=== PATIENT | male | born 1965 | race Caucasian/White ===

== ENCOUNTER 2019-07-04 14:27 | Emergency (ER) | payer MEDICAID ==
[~2019-07-04] VITALS: Ht 172.7 cm; Wt 74.8 kg
[2019-07-04 14:54] VITALS: BP 126/89
== END 2019-07-04 16:54 | disposition home or self-care (01) ==
LOC: ER 14:27
DX: S80.862A Insect bite (nonvenomous), left lower leg, initial encounter (principal); S80.861A Insect bite (nonvenomous), right lower leg, initial encounter; S40.862A Insect bite (nonvenomous) of left upper arm, initial encounter; S40.861A Insect bite (nonvenomous) of right upper arm, initial encounter; E78.00 Pure hypercholesterolemia, unspecified; W57.XXXA Bitten or stung by nonvenomous insect and other nonvenomous arthropods, initial encounter; Y93.89 Activity, other specified; Y92.89 Other specified places as the place of occurrence of the external cause; Y99.8 Other external cause status

== ENCOUNTER 2021-06-22 18:56 | Emergency (ER) | payer MEDICAID ==
[~2021-06-22] VITALS: Ht 172.7 cm; Wt 74.8 kg
[~2021-06-22 18:56] MED LIST: ASPI1TAB20 PO; ATOR20TA50 PO; FOLI1TAB6 PO; GAB100C PO; LEVO500T31 PO; THIA100T10 PO
[2021-06-22 23:24] VITALS: BP 142/100
== END 2021-06-22 23:27 | disposition home or self-care (01) ==
LOC: ER 18:56
DX: M79.605 Pain in left leg (principal); E78.5 Hyperlipidemia, unspecified; Z79.82 Long term (current) use of aspirin; Z79.899 Other long term (current) drug therapy
CPT/HCPCS: 73590; 93970

== ENCOUNTER 2022-07-21 14:48 | Inpatient (IN) | payer MEDICAID ==
[~2022-07-21] VITALS: Ht 172.7 cm; Wt 73.0 kg
[2022-07-21 16:20] LABS: Basophils # (auto) 0.2 10 ^3/uL (0-0.2); Basophils % (auto) 1.1 % (0.0-2.0); Eosinophils # (auto) 0 10 ^3/uL (0-0.8); Lymphocytes # (auto) 0.7 10 ^3/uL (0.4-5.4); Lymphocytes % (auto) 4.2 % (10.0-50.0); Mean Corpuscular Hgb Conc. 34.2 g/dL (32.0-36.0); Nucleated Red Blood Cells % 0.1 %
[2022-07-21 16:22] LABS: Hematocrit 50.5 % (41.0-53.0); Hemoglobin 17.2 g/dL (13.5-17.5); Mean Corpuscular Hemoglobin 34.5 pg (28.0-32.0); Monocytes # (auto) 1.3 10 ^3/uL (0-1.3); Monocytes % (auto) 7.6 % (0.0-12.0); Neutrophils # (auto) 14.5 10 ^3/uL (1.6-8.6); Neutrophils % (auto) 87.1 % (37.0-80.0); Red Cell Distribution Width 13.2 % (11.8-14.3); White Blood Cell 16.6 10^3/uL (4.4-10.8)
[2022-07-21 16:42] LABS: Albumin 3.7 g/dL (3.4-5.0)
[2022-07-21 16:48] LABS: BUN/Creatinine Ratio 12.9; Bilirubin, Total 2.4 mg/dL (0.2-1.0); Total Protein 7.6 g/dL (6.4-8.2)
[2022-07-21] MEDS ORDERED: ONDANSETRON ODT 4 MG TAB PO ONE (17:00)
[2022-07-21 17:08] LABS: Potassium 7.7 mmol/L (3.5-5.1)
[2022-07-21 17:10] LABS: Urine Bacteria NONE SEEN /hpf (None Seen); Urine Blood 2+ /uL (Negative); Urine Hyaline Cast MOD /lpf (0 - 2); Urine Mucus FEW (None Seen); Urine Specific Gravity 1.032 (1.001-1.035); Urine WBC 3 /hpf (0 - 3)
[2022-07-21] MEDS ORDERED: LORazepam 2MG/ML-1ML VIAL ONE (17:20)
[2022-07-21] MEDS ORDERED: LORazepam 2MG/ML-1ML VIAL IV ONE (17:30)
[2022-07-21] MEDS ORDERED: SODIUM CHLORIDE 0.9% 1,000 ML IV ONE ×2 (18:00→18:30)
[2022-07-21] MEDS ORDERED: LORazepam 2MG/ML-1ML VIAL IV SCH (18:15)
[2022-07-21] MEDS ORDERED: PANTOPRAZOLE 40 MG/10 ML VIAL INJ IV ONE (18:15)
[2022-07-21] MEDS ORDERED: InsuLIN REG 1unit/0.01ml Soln (100units/ml) IV ONE ×2 (18:15→22:00)
[2022-07-21] MEDS ORDERED: DEXTROSE (50%) 50ML SYRG IV ONE ×2 (18:15→22:00)
[2022-07-21] MEDS ORDERED: CALCIUM GLUC 1,000mg/50ml-NS 50 ML IV ONE (18:15)
[2022-07-21] MEDS ORDERED: SODIUM BICARBONATE 8.4% INJ 50ML SYRINGE IV ONE (18:15)
[2022-07-21] MEDS ORDERED: chlordiazePOXIDE HCL 25 MG CAP PO ONE (18:15)
[2022-07-21] MEDS ORDERED: FOLIC ACID 1 MG in D5W 5% 50 ML INJ SCH (18:15)
[2022-07-21] MEDS ORDERED: FUROSEMIDE 20 MG/2 ML VIAL IV ONE (18:15)
[2022-07-21] MEDS ORDERED: THIAMINE 100mg/ml INJ (200mg/2ml VIAL) IV ONE (18:15)
[2022-07-21] MEDS ORDERED: LACTATED RINGER'S 2,000 ML IV ONE (18:15)
[2022-07-21] MEDS ORDERED: MORPHINE SULFATE INJ 2 MG/ml SYRG IV PRN (18:30)
[2022-07-21] MEDS ORDERED: NITROGLYCERIN 0.4 MG SL TAB SL PRN (18:30)
[2022-07-21 18:47] LABS: Blood Alcohol < 3.0 mg/dL (0-5); Magnesium 1.6 mg/dL (1.6-2.6)
[2022-07-21 18:55] LABS: INR 1.31 (0.9-1.15)
[2022-07-21 18:55] LABS: Cholesterol 82 mg/dL (< 200); HDL Cholesterol 14 mg/dL (40-59); LDL Cholesterol 48 mg/dL (< 100); Triglycerides 220 mg/dL (< 150)
[2022-07-21] MEDS ORDERED: PIPERACILLIN-TAZOB 2.25GM 50 ML IV ONE (20:00)
[2022-07-21 20:33] LABS: Amphetamine Screen, Urine NEGATIVE (NEGATIVE); Barbiturate Scree,Urine NEGATIVE (NEGATIVE); Benzodiazephine Screen, Urine NEGATIVE (NEGATIVE); Cannabinoid Screen, Urine NEGATIVE (NEGATIVE); Cocaine Screen, Urine NEGATIVE (NEGATIVE); Opiate Scree,Urine NEGATIVE (NEGATIVE); Phencyclidine Screen, Urine NEGATIVE (NEGATIVE)
[2022-07-21] MEDS ORDERED: FOLIC ACID 1 MG in D5W 5% 50 ML INJ ONE (21:00)
[2022-07-21] MEDS: LORazepam 2MG/ML-1ML VIAL IV PRN (21:25)
[2022-07-21 21:26] LABS: Lactic Acid w/Reflex 11.2 mmol/L (0.4-2.0)
[2022-07-21] MEDS: MAGNESIUM SULFATE 1GM/100ML 100 ML IV SCH ×2 (21:47→23:21)
[2022-07-21] MEDS ORDERED: SODIUM BICARBONATE 8.4 % INJ 50ML VIAL IV ONE (22:00)
[2022-07-21] MEDS: GABAPENTIN 100 MG CAP PO SCH (22:00)
[2022-07-21 22:39] LABS: Albumin 3.2 g/dL (3.4-5.0); Bilirubin, Direct 1.5 mg/dL (0-0.2)
[2022-07-21 22:42] LABS: Bilirubin, Total 2.9 mg/dL (0.2-1.0); Total Protein 6.7 g/dL (6.4-8.2)
[2022-07-21] MEDS: ONDANSETRON HCL 4 MG/2 ML VIAL IV PRN (23:26)
[2022-07-21] MEDS: MORPHINE SULFATE INJ 2 MG/ml SYRG IV PRN (23:27)
[2022-07-22] MEDS: PIPERACILLIN-TAZOB 2.25GM 50 ML IV SCH ×3 (03:34→15:49)
[2022-07-22] MEDS: ONDANSETRON HCL 4 MG/2 ML VIAL IV PRN (03:40)
[2022-07-22] MEDS: LORazepam 2MG/ML-1ML VIAL IV PRN ×2 (03:48→22:38)
[2022-07-22] MEDS: SODIUM BICARBONATE 50ML VIAL 150 ML in D5W 5% 1,000 ML IV SCH ×2 (05:50→09:30)
[2022-07-22 06:24] LABS: Basophils # (auto) 0 10 ^3/uL (0-0.2); Basophils % (auto) 0.5 % (0.0-2.0); Eosinophils # (auto) 0 10 ^3/uL (0-0.8); Mean Corpuscular Hemoglobin 35.2 pg (28.0-32.0); Neutrophils # (auto) 4.9 10 ^3/uL (1.6-8.6); Nucleated Red Blood Cells % 0.1 %; White Blood Cell 6.2 10^3/uL (4.4-10.8)
[2022-07-22 06:26] LABS: Hematocrit 38.7 % (41.0-53.0); Hemoglobin 13.9 g/dL (13.5-17.5); Lymphocytes # (auto) 0.6 10 ^3/uL (0.4-5.4); Lymphocytes % (auto) 9.1 % (10.0-50.0); Mean Corpuscular Volume 97.6 fL (80.0-100.0); Monocytes # (auto) 0.6 10 ^3/uL (0-1.3); Monocytes % (auto) 10.4 % (0.0-12.0); Red Blood Cells 3.96 10^6/uL (4.5-5.90); Red Cell Distribution Width 13.4 % (11.8-14.3)
[2022-07-22 06:48] LABS: Calcium 7.3 mg/dL (8.5-10.1); Potassium 4.2 mmol/L (3.5-5.1)
[2022-07-22] MEDS: THIAMINE 100mg/ml INJ (200mg/2ml VIAL) IV SCH (09:46)
[2022-07-22] MEDS: GABAPENTIN 100 MG CAP PO SCH (09:46)
[2022-07-22] MEDS: PANTOPRAZOLE 40 MG/10 ML VIAL INJ IV SCH (09:46)
[2022-07-22] MEDS: FOLIC ACID 1 MG in D5W 5% 50 ML INJ SCH (09:50)
[2022-07-22] MEDS ORDERED: ASPirin-EC 81 mg tab PO SCH (10:00)
[2022-07-22 18:04] LABS: BUN/Creatinine Ratio 17.7; Calcium 8.1 mg/dL (8.5-10.1); Magnesium 2.9 mg/dL (1.6-2.6); Phosphorus 1.4 mg/dL (2.5-4.90); Potassium 4.4 mmol/L (3.5-5.1)
[2022-07-22] MEDS: LACTATED RINGER'S 1,000 ML IV SCH (18:09)
[2022-07-22 21:00] LABS: Folate (Folic Acid) 18.77 ng/mL (5.38-24)
[2022-07-22 21:45] VITALS: BP 114/81
[2022-07-22 21:55] VITALS: BP 117/85
[2022-07-22] MEDS: ATORVASTATIN 20 MG TAB PO SCH (22:06)
[2022-07-22] MEDS: MEROPENEM 1GM IVPB 100 ML IV SCH (22:06)
[2022-07-22] MEDS ORDERED: DIPH25CA66 PO (22:53)
[2022-07-23] MEDS: LACTATED RINGER'S 1,000 ML IV SCH ×4 (04:48→20:40)
[2022-07-23] MEDS: MEROPENEM 1GM IVPB 100 ML IV SCH ×3 (05:34→22:18)
[2022-07-23 05:45] VITALS: BP 138/87
[2022-07-23 06:13] LABS: Basophils # (auto) 0 10 ^3/uL (0-0.2); Basophils % (auto) 0.2 % (0.0-2.0); Eosinophils # (auto) 0 10 ^3/uL (0-0.8); Eosinophils % (auto) 0.3 % (0.0-7.0); Hematocrit 35.8 % (41.0-53.0); Hemoglobin 12.8 g/dL (13.5-17.5); Lymphocytes # (auto) 0.7 10 ^3/uL (0.4-5.4); Lymphocytes % (auto) 12.7 % (10.0-50.0); Mean Corpuscular Hemoglobin 35.5 pg (28.0-32.0); Mean Corpuscular Hgb Conc. 35.8 g/dL (32.0-36.0); Mean Corpuscular Volume 99.3 fL (80.0-100.0); Monocytes # (auto) 0.5 10 ^3/uL (0-1.3); Monocytes % (auto) 9.3 % (0.0-12.0); Neutrophils # (auto) 4.1 10 ^3/uL (1.6-8.6); Neutrophils % (auto) 77.5 % (37.0-80.0); Nucleated Red Blood Cells % 0.1 %; Red Cell Distribution Width 13.4 % (11.8-14.3); White Blood Cell 5.3 10^3/uL (4.4-10.8)
[2022-07-23 06:21] LABS: Potassium 4.5 mmol/L (3.5-5.1)
[2022-07-23 06:27] LABS: Albumin 2.4 g/dL (3.4-5.0); BUN/Creatinine Ratio 17.9; Bilirubin, Total 1.3 mg/dL (0.2-1.0); Calcium 8.1 mg/dL (8.5-10.1); Phosphorus 1.7 mg/dL (2.5-4.90); Total Protein 6.1 g/dL (6.4-8.2); Uric Acid 2.4 mg/dL (3.5-7.2)
[2022-07-23 06:47] LABS: Urine Bacteria FEW /hpf (None Seen); Urine Blood 3+ /uL (Negative); Urine Specific Gravity 1.022 (1.001-1.035); Urine WBC 2 /hpf (0 - 3)
[2022-07-23 07:06] LABS: Sodium Urine 112 mmol/L (40-220)
[2022-07-23 07:08] LABS: Creatinine, Urine 98 mg/dL (30.0-125.0)
[2022-07-23] MEDS ORDERED: SODIUM PHOSPHATES 24 MEQ in SODIUM CHL 0.9% 100 ML IV ONE (08:15)
[2022-07-23 09:00] VITALS: BP 128/76
[2022-07-23] MEDS: THIAMINE 100mg/ml INJ (200mg/2ml VIAL) IV SCH (09:52)
[2022-07-23] MEDS: PANTOPRAZOLE 40 MG/10 ML VIAL INJ IV SCH (09:52)
[2022-07-23] MEDS: MULTIPLE VITAMINS W/ MINERALS TAB PO SCH (09:53)
[2022-07-23] MEDS: FOLIC ACID 1 MG in D5W 5% 50 ML INJ SCH (10:03)
[2022-07-23 13:00] VITALS: BP 152/93
[2022-07-23] MEDS: MORPHINE SULFATE INJ 2 MG/ml SYRG IV PRN (16:53)
[2022-07-23] MEDS: ONDANSETRON HCL 4 MG/2 ML VIAL IV PRN (16:53)
[2022-07-23 17:00] VITALS: BP 128/79
[2022-07-23 22:00] VITALS: BP 143/89
[2022-07-23] MEDS: ATORVASTATIN 20 MG TAB PO SCH (22:18)
[2022-07-24] MEDS: LACTATED RINGER'S 1,000 ML IV SCH ×2 (04:00→08:46)
[2022-07-24] MEDS: LORazepam 2MG/ML-1ML VIAL IV PRN (04:36)
[2022-07-24 05:00] VITALS: BP_SYST 153; BP_SYST 164; BP_DIAS 101; BP_DIAS 99
[2022-07-24 05:11] LABS: Basophils # (auto) 0 10 ^3/uL (0-0.2); Eosinophils # (auto) 0 10 ^3/uL (0-0.8); Hemoglobin 12.7 g/dL (13.5-17.5); Monocytes # (auto) 0.8 10 ^3/uL (0-1.3); Nucleated Red Blood Cells % 0.1 %
[2022-07-24 05:14] LABS: Basophils % (auto) 0.2 % (0.0-2.0); Eosinophils % (auto) 0.5 % (0.0-7.0); Hematocrit 35.6 % (41.0-53.0); Lymphocytes # (auto) 0.6 10 ^3/uL (0.4-5.4); Lymphocytes % (auto) 11.3 % (10.0-50.0); Mean Corpuscular Hemoglobin 35.2 pg (28.0-32.0); Mean Corpuscular Hgb Conc. 35.6 g/dL (32.0-36.0); Mean Corpuscular Volume 98.8 fL (80.0-100.0); Monocytes % (auto) 16.5 % (0.0-12.0); Neutrophils # (auto) 3.5 10 ^3/uL (1.6-8.6); Neutrophils % (auto) 71.5 % (37.0-80.0); Red Cell Distribution Width 12.9 % (11.8-14.3); White Blood Cell 4.9 10^3/uL (4.4-10.8)
[2022-07-24 05:24] LABS: Albumin 2.4 g/dL (3.4-5.0); Magnesium 2.3 mg/dL (1.6-2.6); Potassium 3.7 mmol/L (3.5-5.1)
[2022-07-24 05:27] LABS: BUN/Creatinine Ratio 10.9; Bilirubin, Total 1.4 mg/dL (0.2-1.0); Phosphorus 2.3 mg/dL (2.5-4.90); Total Protein 5.4 g/dL (6.4-8.2)
[2022-07-24] MEDS: MEROPENEM 1GM IVPB 100 ML IV SCH (06:15)
[2022-07-24] MEDS: THIAMINE 100mg/ml INJ (200mg/2ml VIAL) IV SCH (08:45)
[2022-07-24] MEDS: MULTIPLE VITAMINS W/ MINERALS TAB PO SCH (08:45)
[2022-07-24] MEDS: PANTOPRAZOLE 40 MG/10 ML VIAL INJ IV SCH (08:45)
[2022-07-24 08:55] VITALS: BP 150/95
[2022-07-24] MEDS ORDERED: SODIUM PHOSPHATES 24 MEQ in SODIUM CHL 0.9% 100 ML IV ONE (09:00)
[2022-07-24] MEDS: FOLIC ACID 1 MG in D5W 5% 50 ML INJ SCH (10:00)
[2022-07-24] MEDS ORDERED: FOLI1TAB6 PO (11:09)
[2022-07-24] MEDS ORDERED: MULT-351 PO (11:09)
[2022-07-24] MEDS ORDERED: THIA100T10 PO (11:09)
[2022-07-24] MEDS ORDERED: LEVO500T31 PO (11:09)
[2022-07-24] MEDS ORDERED: METR500T PO (11:09)
[2022-07-24 11:14] VITALS: BP 150/95
[2022-07-24 13:10] VITALS: BP 155/98
== END 2022-07-24 14:35 | disposition home or self-care (01) | DRG 720 ==
LOC: ER 14:48 → TELE 18:16 → UNDOADMIN 18:16 → ICU WEST 07-22 04:05 → TELE 07-22 04:05 → TELE-CENTR 07-22 21:53
PROVIDERS: ADMIT Nurse Practitioner Family; ATTEND Internal Medicine
DX: A41.9 Sepsis, unspecified organism (principal); N17.0 Acute kidney failure with tubular necrosis; K85.90 Acute pancreatitis without necrosis or infection, unspecified; F10.131 Alcohol abuse with withdrawal delirium; R73.9 Hyperglycemia, unspecified; K76.0 Fatty (change of) liver, not elsewhere classified; E78.5 Hyperlipidemia, unspecified; E87.5 Hyperkalemia; K80.20 Calculus of gallbladder without cholecystitis without obstruction; N18.2 Chronic kidney disease, stage 2 (mild); Z20.822 Contact with and (suspected) exposure to COVID-19; Y90.8 Blood alcohol level of 240 mg/100 ml or more
CPT/HCPCS: 36415; 36600; 70450; 74176; 76705; 80048; 80053; 80061; 80076; 80307; 80320; 81001; 82140; 82270; 82570; 82607; 82746; 82805; 82962; 83036; 83605; 83690; 83735; 84100; 84132; 84300; 84443; 84550; 85025; 85610; 87040; 87426; 93005; 96361; 96374; C9113; G0378; J1815; J2185; J2405; J2543; J7060

== ENCOUNTER 2025-06-12 09:30 | Inpatient (IN) | payer MEDICAID ==
[~2025-06-12] VITALS: Ht 165.1 cm; Wt 86.0 kg
[~2025-06-12 09:30] MED LIST changes: +DIPH25CA66 PO; +FOLI-119 PO; -FOLI1TAB6 PO; -GAB100C PO; +METR500T PO; +MULT-351 PO
--- NOTE | 2025-06-12 09:51 | ED.PDOC ---
HPI (NEURO) HPI Comments This is a 59-year-old male with past medical history of CVA (2005) brought in by EMS from home due to recurrent fall. Per patient, he had a mechanical fall 7 days back, hit his head on the edge of a tab and subsequently developed headache. He denies loss of consciousness, nausea, vomiting, or any blurry vision. Since then, he has been recurrently falling and is unable to walk (get imbalance). Upon EMS arrival, he was vitally stable. Currently, he reports of occipital area numbness which radiated to the top of the head. He denies headache, blurry vision, nausea, vomiting, chest pain, shortness of breath, or any bladder/bowel habit changes. He has multiple bruises on the back of the c hest, anterior chest, and lower limbs due to fall. 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 Information Source: Patient Mode of Arrival: EMS Past Medical History PAST MEDICAL HISTORY: CVA, High Lipids Surgical History: Denies all surgeries Family History Family History: Reviewed,noncontributory to illness Social History Smoker: Non-Smoker Alcohol: Heavy Drugs: Denies Drug Use Lives In: Home Constitutional: denies: chills, diaphoresis, fatigue, fever, malaise, sweats, weakness, others EENTM: denies: blurred vision, double vision, ear bleeding, ear discharge, ear drainage, ear pain, ear ringing, eye pain, eye redness, hearing loss, mouth pain, mouth swelling, nasal discharge, nose bleeding, nose congestion, nose pain, photophobia, tearing, throat pain, throat swelling, voice changes, others Respiratory: denies: cough, hemoptysis, orthopnea, SOB at rest, shortness of breath, SOB with excertion, stridor, wheezing, others Cardiovascular: denies: chest pain, dizzy spells, diaphoresis, Dyspnea on exertion, edema, irregular heart beat, left arm pain, lightheadedness, palpitations, PND, syncope, others Gastrointestinal: denies: abdomen distended, abdominal pain, blood streaked bowels, constipated, diarrhea, dysphagia, difficulty swallowing, hematemesis, melena, nausea, poor appetite, poor fluid intake, rectal bleeding, rectal pain, vomiting, others Genitourinary: denies: burning, dysuria, flank pain, frequency, hematuria, incontinence, penile discharge, penile sore, pain, testicle pain, testicle swelling, urgency, others Neurological: denies: dizziness, fainting, headache, left sided numbness, left sided weakness, numbness, paresthesia, pre-existing deficit, right sided numbness, right sided weakness, seizure, speech problems, tingling, tremors, weakness, others Musculoskeletal: denies: back pain, gout, joint pain, joint swelling, muscle pain, muscle stiffness, neck pain, others Integumetry: denies: bruises, change in color, change in hair/nails, dryness, laceration, lesions, lumps, rash, wounds, others Allergic/Immunocompromised: denies: Difficulty Healing, Frequent Infections, Hives, Itching, others Hematologic/Lymphatic: denies: anemia, blood clots, easy bleeding, easy bruising, swollen glands, others Endocrine: denies: excessive hunger, excessive sweating, excessive thirst, excessive urination, flushing, intolerance to cold, intolerance to heat, unexplained weight gain, unexplained weight loss, others Psychiatric: denies: anxiety, bipolar disorder, depression, hopeless, panic disorder, schizophrenia, sleepless, suicidal, others Physical Exam General Appearance: No Apparent Distress, Normal HEENT: Normal ENT Inspection, Pharynx Normal, TMs Normal Neck: Full Range of Motion, Non-Tender, Normal, Normal Inspection Respiratory: Chest Non-Tender, Lungs Clear, No Accessory Muscle Use, No Respiratory Distress, Normal Breath Sounds Cardiovascular: No Edema, No JVD, No Murmur, No Gallop, Normal Peripheral Pulses, Regular Rate/Rhythm Breast Exam: Deferred Gastrointestinal: No Organomegaly, Non Tender, No Pulsatile Mass, Normal Bowel Sounds, Soft Genitalia: Deferred Pelvic: Deferred Rectal: Deferred Extremities: No calf tenderness, Normal capillary refill, Normal inspection, Normal range of motion, Non-tender, No pedal edema Musculoskeletal : Apperance: Normal Neurologic: Alert, patternmaker sample II-XII nml as Tested, No Motor Deficits, Normal Affect, Normal Mood, No Sensory Deficits Cerebellar Function: Normal Reflexes: Normal Skin: Dry, Normal Color, Warm Lymphatic: No Adenopathy Was a procedure done? Was a procedure done?: No Differential Diagnosis (SZ) Seizure: CVA/TIA Headache: Closed Head Injury, Post-Traumatic X-Ray, Labs, Meds, VS Vital Signs Date Time Temp Pulse Resp B/P (MAP) Pulse Ox O2 Delivery O2 Flow Rate FiO2 06/12/25 13:00 92 16 119/71 (87) 97 06/12/25 12:10 98.3 85 20 98/68 (78) 97 98.3 06/12/25 12:10 85 20 97 Room Air* 0 21 06/12/25 11:11 91 18 129/72 (91) 99 06/12/25 09:50 Room Air* 0 21 06/12/25 09:44 98.0 95 18 132/87 98 98.0 Lab Test 06/12/25 14:40 06/12/25 09:58 Range/Units Urine Color Yellow Yellow Urine Clarity Clear Clear Urine pH 6.5 5.0-9.0 Urine Specific [place] 1.014 1.001-1.035 Urine Protein Negative Negative Urine Ketones 1+ H Negative Urine Blood Negative Negative /uL Urine Nitrite Negative Negative Urine Bilirubin Negative Negative Urine Urobilinogen Normal Negative mg/dL Urine Leukocyte Esterase Negative Negative /uL Urine RBC <1 0 - 3 /hpf Urine Microscopic WBC < 1 0-3 /HPF Urine Squamous Epithelial Cells Few <5 /hpf Urine Bacteria None seen None Seen /hpf Urine Glucose Normal Normal mg/dL Urine Opiates Screen Neg NEGATIVE Urine Fentanyl Screen Neg NEGATIVE Urine Barbiturates Screen Neg NEGATIVE Urine Phencyclidine Screen Neg NEGATIVE Urine Amphetamines Screen Neg NEGATIVE Urine Benzodiazepines Screen Neg NEGATIVE Urine Cocaine Screen Neg NEGATIVE Urine Cannabinoids Screen Neg NEGATIVE White Blood Count 6.8 4.4-10.8 10^3/uL Red Blood Count 3.95 L 4.5-5.90 10^6/uL Hemoglobin 13.3 L 13.5-17.5 g/dL Hematocrit 37.3 L 41.0-53.0 % Mean Corpuscular Volume 94.4 80.0-100.0 fL Mean Corpuscular Hemoglobin 33.8 H 28.0-32.0 pg Mean Corpuscular Hemoglobin Concent 35.8 32.0-36.0 g/dL Red Cell Distribution Width 12.8 11.8-14.3 % Platelet Count 298 140-450 10^3/uL Mean Platelet Volume 6.8 L 6.9-10.8 fL Neutrophils (%) (Auto) 37.0-80.0 % Lymphocytes (%) (Auto) 10.0-50.0 % Monocytes (%) (Auto) 0.0-12.0 % Basophils (%) (Auto) 0.0-2.0 % Neutrophils # (Auto) 1.6-8.6 10 ^3/uL Lymphocytes # (Auto) 0.4-5.4 10 ^3/uL Monocytes # (Auto) 0-1.3 10 ^3/uL Differential Total Cells Counted 100.0 100 Neutrophils % (Manual) 40 37.0-80.0 Band Neutrophils % (Manual) 6 Lymphocytes % (Manual) 31 10.0-50.0 Monocytes % (Manual) 21 H 0-12 Eosinophils % (Manual) 0 0-7 Basophils % (Manual) 0 0.0-2.0 Metamyelocytes % (manual) 1 Myelocytes % (Manual) 1 Promyelocytes % (Manual) 0 Blast Cells % (Manual) 0 Reactive Lymphocytes 0 Platelet Estimate Adequate Red Blood Cell Morphology Normal Prothrombin Time 11.9 H 9.3-11.8 sec Prothrombin Time INR 1.14 0.9-1.15 Sodium Level 126 L 136-145 mmol/L Potassium Level 3.2 L 3.5-5.1 mmol/L Chloride Level 91 L 98-107 mmol/L Carbon Dioxide Level 21 20-31 mmol/L Anion Gap 14 5-15 Blood Urea Nitrogen 21 9-23 mg/dL Creatinine 0.80 0.700-1.30 mg/dL Glomerular Filtration Rate Calc 101 >90 mL/min BUN/Creatinine Ratio 26.3 H 10.0-20.0 Serum Glucose 129 H 74-106 mg/dL Calcium Level 10.3 8.7-10.4 mg/dL Magnesium Level 2.1 1.6-2.6 mg/dL Total Bilirubin 1.9 H 0.2-1.0 mg/dL Aspartate Amino Transferase (AST) 264 H 13-40 U/L Alanine Aminotransferase (ALT) 150 H 7-40 U/L Alkaline Phosphatase 96 46-116 U/L Troponin I High Sensitivity 20 </=54 ng/L Total Protein 7.5 5.7-8.2 g/dL Albumin 4.4 3.2-4.8 g/dL Plasma/Serum Blood Alcohol < 3.0 <10 mg/dL Current Medications Medications (Trade) Dose Ordered Sig/Emily Route Start Time Stop Time Status Last Admin Atorvastatin Calcium (Lipitor) 80 mg ONCE ONCE PO 06/12/25 10:00 06/12/25 10:01 DC 06/12/25 11:02 Sodium Chloride 1,000 ml @ 1,000 mls/hr Q1H ONCE IV 06/12/25 11:00 06/12/25 11:59 DC 06/12/25 10:58 Time of 1ST Reevaluation: 15:36 Reevaluation 1ST: Unchanged Patient Education/Counseling: Diagnosis, Treatment, Prognosis, Need For Follow Up Family Education/Counseling: No Family Present Comments Patient came to the hospital due to recurrent fall. Head CT scan performed, no significant intracranial abnormalities. On CMP there was hypokalemia. Patient was given atorvastatin, IV fluid, folic acid and thiamine. On subsequent check a patient's BP was still feeling the same. Patient will be admitted for inpatient care, further workup, possible brain MRI and expert opinion. Departure 1 Departure Time of Disposition: 15:36 Impression: Primary Impression: Posterior circulation stroke Additional Impression: Hepatitis Disposition: 09 ADMITTED INPATIENT Admit to: Tele Condition: Guarded Critical Care Note Critical Care Time?: Yes (45 min-critical care time only) Stability Stability form required: No Heart Score Heart Score: Heart Score Response (Comments) Value History N/A 0 EKG N/A 0 Age N/A 0 Risk Factors N/A 0 Troponin N/A 0 Total 0 SARAH CAVAZOS Jun 12, 2025 09:51
[2025-06-12 10:14] LABS: Hematocrit 37.3 % (41.0-53.0); Hemoglobin 13.3 g/dL (13.5-17.5); Mean Corpuscular Hemoglobin 33.8 pg (28.0-32.0); Mean Corpuscular Volume 94.4 fL (80.0-100.0)
[2025-06-12 10:25] LABS: INR 1.14 (0.9-1.15); Prothrombin Time 11.9 sec (9.3-11.8)
[2025-06-12 10:28] LABS: Albumin 4.4 g/dL (3.2-4.8); Alkaline Phosphatase 96 U/L (46-116); Anion Gap 14 (5-15); BUN/Creatinine Ratio 26.3 (10.0-20.0); Blood Urea Nitrogen 21 mg/dL (9-23); Calcium 10.3 mg/dL (8.7-10.4); Carbon Dioxide 21 mmol/L (20-31); Magnesium 2.1 mg/dL (1.6-2.6); Total Protein 7.5 g/dL (5.7-8.2)
[2025-06-12 10:29] LABS: Alanine Aminotransferase 150 U/L (7-40); Bilirubin, Total 1.9 mg/dL (0.2-1.0); Chloride 91 mmol/L (98-107); Glucose 129 mg/dL (74-106); Potassium 3.2 mmol/L (3.5-5.1); Sodium 126 mmol/L (136-145)
--- NOTE | 2025-06-12 10:29 | DVH ---
EXAM: CT HEAD WITHOUT CONTRAST INDICATION: fall TECHNIQUE: CT of the head without intravenous contrast. Coronal and sagittal reformatted images are s ubmitted. Radiation Dose : 1. Head: CT Dose: CTDI volume is 53.34 mGy. Dose-length product is 1049.6 mGy*cm The dose indicators for CT are the volume Computed Tomography (CT) Dose Index (CTDIvol) and the Dose Length Product (DLP), and are measured in units of mGy and mGy-cm, respectively. These indicators are not patient dose, but values generated from the CT scanner acquisition factors. The report includes radiation exposure data for exposures received during this examination. All CT scans at this medical facility are performed using dose modulation techniques as appropriate to a performed exam including the following: Automated exposure control was utilized; adjustment of the MA and/or KV according to patient size; and use of iterative reconstruction technique. COMPARISON: None FINDINGS: There is no evidence of acute intracranial hemorrhage, extra-axial collection, mass effect, midline s hift, herniation or hydrocephalus. The ventricles, sulci and cisterns are age appropriate. The wells-white differentiation is intact. The visualized paranasal sinuses and mastoid air cells are clear. No depressed calvarial fracture. The surrounding soft tissues are unremarkable. IMPRESSION: 1. No acute intracranial abnormality.
[2025-06-12] MEDS: SODIUM CHLORIDE 0.9% 1,000 ML IV ONE (10:58)
[2025-06-12] MEDS: ATORVASTATIN 20 MG TAB PO ONE (11:02)
[2025-06-12 11:39] LABS: Total Cells Counted 100.0 (100)
[2025-06-12 11:40] LABS: RBC Morphology Normal
--- NOTE | 2025-06-12 12:09 | DVH ---
INDICATION: rasied LFT TECHNIQUE: Multiple real-time sonographic images were obtained of the right upper quadrant. COMPARISON: ABDOMEN LIMITED on DOS: 07/21/22, ABDL on DOS: 07/21/22, CT ABD PELVIS WO CONTRAST on DOS : 07/21/22 FINDINGS: The liver demonstrates increased echotexture without focal mass lesions. The liver measures 17 cm. There is no intrahepatic or extrahepatic ductal dilatation. The common duct measures 4 mm. The gallbladder is without evidence of stone or sludge. The gallbladder is contracted which limits ev aluation. The gallbladder wall measures 3 mm and is within normal limits. The right kidney measures 10 cm. The right kidney is normal in contour, size, and shape. The echogen icity is normal. There is no hydronephrosis. Echogenic focus in the right kidney measuring 1 cm which may represent a renal stone. The pancreas is not well visualized due to overlying bowel gas. IMPRESSION: Hepatic steatosis. Echogenic focus in the right kidney measuring 1 cm which may represent a renal stone.
[2025-06-12 12:10] VITALS: PULSE 85; RESP 20; O2SAT 97
[2025-06-12 15:12] LABS: Urine Protein, UAD Negative (Negative)
[2025-06-12 15:23] LABS: Amphetamine Screen, Urine Neg (NEGATIVE); Barbiturate Scree,Urine Neg (NEGATIVE); Benzodiazephine Screen, Urine Neg (NEGATIVE); Cannabinoid Screen, Urine Neg (NEGATIVE); Cocaine Screen, Urine Neg (NEGATIVE); Opiate Scree,Urine Neg (NEGATIVE); Phencyclidine Screen, Urine Neg (NEGATIVE)
[2025-06-12] MEDS: THIAMINE 100mg/ml INJ (200mg/2ml VIAL) IV ONE (16:07)
--- NOTE | 2025-06-12 16:56 | ECG ---
[facility] Test Date: 2025-06-12 Test Time: 09:46:47 Pat Name: JOELLE KEN Department: Room: [address] [place] [address] Gender: M Customer Support Assistant: JOSEMANUEL : 1965 Requested By: SARAH CAVAZOS Order Number: [id number] Reading MD: Anselmo Marte Measurements Intervals [place] Rate: 92 P: -19 UT: 212 QRS: 15 QRSD: 84 T: 70 QT: 345 QTc: 427 Interpretive Statements Sinus rhythm Borderline prolonged UT interval Electronically Signed On 06-13-2025 16:59:45 PDT by Anselmo Marte Please click the below link to view image of tracing.
[2025-06-12] MEDS: FOLIC ACID 1 MG in D5W 5% 50 ML INJ ONE (18:01)
[2025-06-12 19:55] VITALS: RESP 20; O2SAT 96
--- NOTE | 2025-06-12 22:53 | DVHHPRES ---
History of Present Illness Resident Creating Document: ESTHELA CHAVEZ RESIDENT History of Present Illness Bryan Pavon is a 59-year-old male with past medical history of CVA, hyperlipidemia who came to the ED with chief complaints of occipital and head numbness, recurrent falls. As per patient he had a mechanical fall 8 days ago where he hit his head and backside of his neck on the edge of the tub, and for the next couple of days has had loss of balance, dizziness, difficulty walking and blurry vision since 4 days. Patient states that he held onto counters to walk during which he felt dizzy. Patient denies any loss of consciousness, nausea, vomiting, headaches. Patient's whole body is covered with bruises. Patient complained of illusions. Patient is admitted for further evaluation and management. Surgical history: Left ankle surgery, left wrist surgery Family history : reviewed, noncontributory Personal history: Ex-smoker with 35 pack year history, ex marijuana and ex methamphetamine user, drinks heavily in the past Lives with: Family PCP: Dr. Candelaria Review of Systems Constitutional: Yes: Other (Dizziness); No: Fever, Chills, Sweats, Weakness, Malaise Eyes: Vision change; No: Pain, Conjunctivae inflammation, Eyelid inflammation, Other, Redness ENT: No: Ear pain, Ear discharge, Nose pain, Nose discharge, Nose congestion, Mouth pain, Mouth swelling, Throat pain, Throat swelling, Other Respiratory: No: Cough, Dry, Shortness of breath, SOB with excertion, Wheezing, Hemoptysis, Pleuritic Pain, Sputum, Wheezing, Other Cardiovascular: No: Chest Pain, Palpitations, Orthopnea, Paroxysmal Noc. Dyspnea, Edema, Lt Headedness, Other Gastrointestinal: Nausea; No: Vomiting, Abdominal Pain, Diarrhea, Constipation, Melena, Hematochezia, Other Genitourinary: No Dysuria, No Frequency, No Incontinence, No Hematuria, No Retention, No Other Musculoskeletal: No: other, neck pain, shoulder pain, arm pain, back pain, hand pain, leg pain, foot pain Skin: Bruising; No: Rash, Lesions, Jaundice, Other Neurological: No: Weakness, Numbness, Incoordination, Change in speech, Confusion, Seizures, Other Allergies: Coded Allergies: NO KNOWN ALLERGIES (Unverified , 10/04/18) Exam Vital Signs Vital Signs Date Time Temp Pulse Resp B/P (MAP) Pulse Ox O2 Delivery O2 Flow Rate FiO2 06/12/25 19:55 89 15 106/76 (86) 96 06/12/25 19:55 Room Air* 0 21 06/12/25 19:08 98.3 98.3 Exam General: Patient alert and oriented in person, place and time. Patient following commands. HEENT: Normocephalic, atraumatic, moist mucous membranes, posterior neck pain, numbness in occipital region Respiratory/pulmonary: Clear lungs bilaterally, vesicular murmurs present in almost all lung roach, no associated crackles or wheezes. Cardiovascular: Normal heart sounds S1 and S2 with no associated murmurs Abdomen: Abdomen nondistended, there is no pain to palpation in any of the abdominal quadrants, no palpable masses. Extremities: There is no peripheral edema present at the lower extremities. Peripheral Pulses: 3+ Radial (R). 3+ Radial (L). 3+ Dorsalis pedis (R). 3+ Dorsalis pedis(L) Skin: Multiple bruises all over body Neurological: Intact cranial nerves with no focal neurologic deficits Labs/Xrays Labs Test 06/12/25 14:40 06/12/25 09:58 Range/Units Urine Color Yellow Yellow Urine Clarity Clear Clear Urine pH 6.5 5.0-9.0 Urine Specific [place] 1.014 1.001-1.035 Urine Protein Negative Negative Urine Ketones 1+ H Negative Urine Blood Negative Negative /uL Urine Nitrite Negative Negative Urine Bilirubin Negative Negative Urine Urobilinogen Normal Negative mg/dL Urine Leukocyte Esterase Negative Negative /uL Urine RBC <1 0 - 3 /hpf Urine Microscopic WBC < 1 0-3 /HPF Urine Squamous Epithelial Cells Few <5 /hpf Urine Bacteria None seen None Seen /hpf Urine Glucose Normal Normal mg/dL Urine Opiates Screen Neg NEGATIVE Urine Fentanyl Screen Neg NEGATIVE Urine Barbiturates Screen Neg NEGATIVE Urine Phencyclidine Screen Neg NEGATIVE Urine Amphetamines Screen Neg NEGATIVE Urine Benzodiazepines Screen Neg NEGATIVE Urine Cocaine Screen Neg NEGATIVE Urine Cannabinoids Screen Neg NEGATIVE White Blood Count 6.8 4.4-10.8 10^3/uL Red Blood Count 3.95 L 4.5-5.90 10^6/uL Hemoglobin 13.3 L 13.5-17.5 g/dL Hematocrit 37.3 L 41.0-53.0 % Mean Corpuscular Volume 94.4 80.0-100.0 fL Mean Corpuscular Hemoglobin 33.8 H 28.0-32.0 pg Mean Corpuscular Hemoglobin Concent 35.8 32.0-36.0 g/dL Red Cell Distribution Width 12.8 11.8-14.3 % Platelet Count 298 140-450 10^3/uL Mean Platelet Volume 6.8 L 6.9-10.8 fL Neutrophils (%) (Auto) 37.0-80.0 % Lymphocytes (%) (Auto) 10.0-50.0 % Monocytes (%) (Auto) 0.0-12.0 % Basophils (%) (Auto) 0.0-2.0 % Neutrophils # (Auto) 1.6-8.6 10 ^3/uL Lymphocytes # (Auto) 0.4-5.4 10 ^3/uL Monocytes # (Auto) 0-1.3 10 ^3/uL Differential Total Cells Counted 100.0 100 Neutrophils % (Manual) 40 37.0-80.0 Band Neutrophils % (Manual) 6 Lymphocytes % (Manual) 31 10.0-50.0 Monocytes % (Manual) 21 H 0-12 Eosinophils % (Manual) 0 0-7 Basophils % (Manual) 0 0.0-2.0 Metamyelocytes % (manual) 1 Myelocytes % (Manual) 1 Promyelocytes % (Manual) 0 Blast Cells % (Manual) 0 Reactive Lymphocytes 0 Platelet Estimate Adequate Red Blood Cell Morphology Normal Prothrombin Time 11.9 H 9.3-11.8 sec Prothrombin Time INR 1.14 0.9-1.15 Sodium Level 126 L 136-145 mmol/L Potassium Level 3.2 L 3.5-5.1 mmol/L Chloride Level 91 L 98-107 mmol/L Carbon Dioxide Level 21 20-31 mmol/L Anion Gap 14 5-15 Blood Urea Nitrogen 21 9-23 mg/dL Creatinine 0.80 0.700-1.30 mg/dL Glomerular Filtration Rate Calc 101 >90 mL/min BUN/Creatinine Ratio 26.3 H 10.0-20.0 Serum Glucose 129 H 74-106 mg/dL Calcium Level 10.3 8.7-10.4 mg/dL Magnesium Level 2.1 1.6-2.6 mg/dL Total Bilirubin 1.9 H 0.2-1.0 mg/dL Aspartate Amino Transferase (AST) 264 H 13-40 U/L Alanine Aminotransferase (ALT) 150 H 7-40 U/L Alkaline Phosphatase 96 46-116 U/L Troponin I High Sensitivity 20 </=54 ng/L Total Protein 7.5 5.7-8.2 g/dL Albumin 4.4 3.2-4.8 g/dL Plasma/Serum Blood Alcohol < 3.0 <10 mg/dL SEPSIS Sepsis Screen Date sepsis recognized/suspect: Jun 12, 2025 Time Sepsis recognized/suspect: 1209 Recent Procedure: No On Antibiotic Therapy: No Respiratory Rate >20: No Heart Rate >90: No Temp<36 C (96.8 F) or >38.3 C: No SBP <90 or MAP <65 mmHG: No New Acute Mental Status Change: No Is the patient on CPAP, BIPAP,: No Physician Orders Admit (06/12/25 22:29) Allergies (06/12/25 22:29) Code Status (06/12/25:29) Fall Risk Precautions In Place QSHIFT (06/12/25 22:29) Complete Blood Count (06/13/25 04:00) Comprehensive Metabolic Panel (06/13/25 04:00) Condition: Serious (06/12/25 22:29) Vital Signs Date Time Temp Pulse Resp B/P (MAP) Pulse Ox O2 Delivery O2 Flow Rate FiO2 06/12/25 19:55 89 15 106/76 (86) 96 06/12/25 19:55 20 96 Room Air* 0 21 06/12/25 19:08 98.3 80 16 112/71 (85) 95 98.3 06/12/25 15:50 91 16 120/71 (87) 96 Medications Medications Dose Ordered Sig/Emily Route Start Time Stop Time Status Last Admin Dose Admin Aspirin 81 mg ONCE ONCE PO 06/12/25 15:45 06/12/25 15:49 DC 06/12/25 16:07 81 MG Folic Acid 1 mg/ Dextrose 50.2 ml @ 200.8 mls/ hr ONCE ONCE INJ 06/12/25 15:45 06/12/25 15:59 DC 06/12/25 18:01 200.8 MLS/HR Sodium Chloride 1,000 ml @ 1,000 mls/hr Q1H ONCE IV 06/12/25 11:00 06/12/25 11:59 DC 06/12/25 10:58 1,000 MLS/HR Thiamine HCl 100 mg ONCE ONCE IV 06/12/25 15:45 06/12/25 15:49 DC 06/12/25 16:07 100 MG Assessment/Plan Assessment/Plan Assessment and plan # ? Wernicke encephalopathy # Mechanical fall - cervical neck x-ray, pending - consider neurology consult - head CT showed No acute intracranial abnormality. - IV thiamine - IV folate # hyponatremia -monitor labs # hypokalemia - replenished, monitor labs # hyperbilirubinemia with transaminitis # hepatic steatosis - Liver US Showed Hepatic Steatosis and Echogenic focus in the right kidney measuring 1 cm which may represent a renal stone. - monitor labs # slow transit constipation - Colace # hyperlipidemia - Continue home meds PPI prophylaxis: Not indicated DVT prophylaxis: Lovenox Goals of care addressed with the patient for more than 27 minutes: DNR/DNI Case discussed with Dr. Solano , patient and nurse Plan discussed with: Patient My Orders Orders - ESTHELA CHAVEZ Procedure Category Date Status Time Admit ADMIT 06/12/25 Transmitted 22:29 Allergies ARABELLA 06/12/25 In Process 22:29 Code Status CODE 06/12/25 Transmitted 22:29 Fall Risk Precautions ARABELLA 06/12/[address] 22:29 Complete Blood Count LAB 06/13/25 Verified 04:00 Comprehensive LAB 06/13/25 Verified Metabolic Panel 04:00 Condition: Serious ARABELLA 06/12/25 In Process 22:29 Date of Service: Jun 12, 2025 Billing Provider: AKHIL SOLANO MD Common Visit Codes: [id number] INP/OBS CARE (HIGH) Secondary Visit Codes: [id number] CARE PLAN 30 MINUTES ESTHELA CHAVEZ Jun 12, 2025 22:53
[2025-06-13 06:10] LABS: Albumin 3.8 g/dL (3.2-4.8); Alkaline Phosphatase 96 U/L (46-116); Anion Gap 9 (5-15); BUN/Creatinine Ratio 20.9 (10.0-20.0); Blood Urea Nitrogen 14 mg/dL (9-23); Calcium 9.5 mg/dL (8.7-10.4); Carbon Dioxide 27 mmol/L (20-31); Magnesium 1.9 mg/dL (1.6-2.6); Total Protein 6.4 g/dL (5.7-8.2)
[2025-06-13 06:13] LABS: Hematocrit 33.7 % (41.0-53.0); Hemoglobin 12.1 g/dL (13.5-17.5); Mean Corpuscular Hemoglobin 34.0 pg (28.0-32.0); Mean Corpuscular Volume 94.6 fL (80.0-100.0)
[2025-06-13 06:24] LABS: Alanine Aminotransferase 129 U/L (7-40); Bilirubin, Total 1.7 mg/dL (0.2-1.0); Chloride 95 mmol/L (98-107); Glucose 142 mg/dL (74-106); Potassium 3.1 mmol/L (3.5-5.1); Sodium 131 mmol/L (136-145)
[2025-06-13 06:29] LABS: INR 1.11 (0.9-1.15); Partial Thromboplastin Time 27.1 SEC (24.5-34.5); Prothrombin Time 11.6 sec (9.3-11.8)
[2025-06-13] MEDS: POTASSIUM CHL 20MEQ/100ML 100 ML IV ONE (07:08)
[2025-06-13] MEDS ORDERED: DOCUSATE SOD 100 MG CAP PO PRN (09:00)
[2025-06-13] MEDS: POTASSIUM EFFERVESENT TAB 25 MEQ PO ONE (09:50)
[2025-06-13] MEDS ORDERED: POTASSIUM EFFERVESENT TAB 25 MEQ GT SCH (10:00)
--- NOTE | 2025-06-13 10:30 | DVH ---
INDICATION: neck pain COMPARISON: None TECHNIQUE: 3 views of the cervical spine were obtained. FINDINGS: The cervical vertebral alignment is normal. The predental space is normal. Multilevel degenerative changes most severe at C4-C5 through C5-C6 causing moderate to severe neural foraminal and spinal canal stenosis. No acute fracture, vertebral compression deformity or aggressive osseous lesions. The imaged lung apices are unremarkable. IMPRESSION: No acute fracture.
[2025-06-13 11:40] LABS: Total Cells Counted 100.0 (100)
[2025-06-13 11:44] LABS: Hepatitis A Total Antibody Negative (Negative); Hepatitis B Surface Antigen Negative (Negative); Hepatitis C Antibody Negative (Negative)
[2025-06-13 13:00] VITALS: PULSE 85; RESP 14; O2SAT 97
[2025-06-13] MEDS ORDERED: KETOROLAC TROMETH 30 MG/ML 1ML VIAL IV PRN (14:00)
[2025-06-13] MEDS ORDERED: THIAMINE INJ 500 MG in D5W 5% 50 ML IV SCH (14:00)
[2025-06-13] MEDS ORDERED: FOLIC ACID 1 MG in D5W 5% 50 ML INJ SCH (14:03)
--- NOTE | 2025-06-13 14:07 | DVHPN2 ---
Assessment/Plan Assessment/Plan progress note 59 M with alcohol use admitted for aloc and concern of wernickie. 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 physical exam aox3 perlla ctab s1 s2 rrr abdomen soft no paraspinal tenderness, no neck stiffness bruises throughout back no le edema labs ekg imaging reviewed assessment and plan alcohol use multiple falls werncikie? anemia normocytic hypokalemia transaminitis hyponatremia replete lytes high dose thiamine and folate pt pain mgmt watch withdrawal diet reg dvt ppx hold DNR? Plan discussed with: Patient My Orders Orders - ANT KOHLER MD Procedure Category Date Status Time Basic Metabolic Panel LAB 06/14/25 Verified 04:00 Complete Blood Count LAB 06/14/25 Verified 04:00 Thiamine Inj PHA 06/13/25 Logged 14:00 Thiamine Inj PHA 06/16/25 Logged 10:00 Folic Acid PHA 06/14/25 Logged 10:00 Ketorolac Injection PHA 06/13/25 Logged (Toradol Injection) 14:00 Date of Service: Jun 13, 2025 Billing Provider: ANT KOHLER MD Common Visit Codes: [id number] INP/OBS CARE(HIGH) ANT KOHLER MD Jun 13, 2025 14:07
[2025-06-13 14:46] VITALS: BP 120/60; PULSE 93; RESP 18; TEMP 97.8; O2SAT 98
[2025-06-13] MEDS ORDERED: ATORVASTATIN 20 MG TAB PO SCH (22:00)
--- NOTE | 2025-06-14 13:49 | DVHDS2 ---
Discharge Summary Date of Admission Jun 12, 2025 at 22:29 Date of Discharge: Jun 13, 2025 Labs/Diagnostic Data: Laboratory Results Test 06/13/25 05:38 06/12/25 14:40 06/12/25 09:58 White Blood Count 4.5 10^3/uL (4.4-10.8) Red Blood Count 3.56 10^6/uL (4.5-5.90) Hemoglobin 12.1 g/dL (13.5-17.5) Hematocrit 33.7 % (41.0-53.0) Mean Corpuscular Volume 94.6 fL (80.0-100.0) Mean Corpuscular Hemoglobin 34.0 pg (28.0-32.0) Mean Corpuscular Hemoglobin Concent 35.9 g/dL (32.0-36.0) Red Cell Distribution Width 12.8 % (11.8-14.3) Platelet Count 267 10^3/uL (140-450) Mean Platelet Volume 6.7 fL (6.9-10.8) Neutrophils (%) (Auto) % (37.0-80.0) Lymphocytes (%) (Auto) % (10.0-50.0) Monocytes (%) (Auto) % (0.0-12.0) Basophils (%) (Auto) % (0.0-2.0) Neutrophils # (Auto) 10 ^3/uL (1.6-8.6) Lymphocytes # (Auto) 10 ^3/uL (0.4-5.4) Monocytes # (Auto) 10 ^3/uL (0-1.3) Differential Total Cells Counted 100.0 (100) Neutrophils % (Manual) 43 (37.0-80.0) Band Neutrophils % (Manual) 13 Lymphocytes % (Manual) 20 (10.0-50.0) Monocytes % (Manual) 23 (0-12) Eosinophils % (Manual) 1 (0-7) Basophils % (Manual) 0 (0.0-2.0) Metamyelocytes % (manual) 0 Myelocytes % (Manual) 0 Promyelocytes % (Manual) 0 Blast Cells % (Manual) 0 Reactive Lymphocytes 0 Platelet Estimate Adequate Erythrocyte Sedimentation Rate 22 mm/hr (0-20) Prothrombin Time 11.6 sec (9.3-11.8) Prothrombin Time INR 1.11 (0.9-1.15) Activated Partial Thromboplast Time 27.1 SEC (24.5-34.5) D-Dimer, Quantitative 1.55 mg/L FEU (0.0-0.49) Sodium Level 131 mmol/L (136-145) Potassium Level 3.1 mmol/L (3.5-5.1) Chloride Level 95 mmol/L (98-107) Carbon Dioxide Level 27 mmol/L (20-31) Anion Gap 9 (5-15) Blood Urea Nitrogen 14 mg/dL (9-23) Creatinine 0.67 mg/dL (0.700-1.30) Glomerular Filtration Rate Calc 106 mL/min (>90) BUN/Creatinine Ratio 20.9 (10.0-20.0) Serum Glucose 142 mg/dL (74-106) Calcium Level 9.5 mg/dL (8.7-10.4) Phosphorus Level 1.2 mg/dL (2.4-5.1) Magnesium Level 1.9 mg/dL (1.6-2.6) Total Bilirubin 1.7 mg/dL (0.2-1.0) Aspartate Amino Transferase (AST) 188 U/L (13-40) Alanine Aminotransferase (ALT) 129 U/L (7-40) Alkaline Phosphatase 96 U/L (46-116) Troponin I High Sensitivity 15 ng/L (</=54) B-Type Natriuretic Peptide 30.48 pg/mL (0-100) Total Protein 6.4 g/dL (5.7-8.2) Albumin 3.8 g/dL (3.2-4.8) Vitamin B12 Level 1685 pg/mL (211-911) Folic Acid 17.92 ng/mL (>5.38) Thyroid Stimulating Hormone (TSH) 0.69 uIU/mL (0.55-4.78) Hepatitis A Antibody Total Negative (Negative) Hepatitis B Surface Antigen Negative (Negative) Hepatitis B Surface Antibody Negative (Negative) Hepatitis B Core Total Antibody Negative (Negative) Hepatitis C Antibody Negative (Negative) Urine Color Yellow (Yellow) Urine Clarity Clear (Clear) Urine pH 6.5 (5.0-9.0) Urine Specific [place] 1.014 (1.001-1.035) Urine Protein Negative (Negative) Urine Ketones 1+ (Negative) Urine Blood Negative /uL (Negative) Urine Nitrite Negative (Negative) Urine Bilirubin Negative (Negative) Urine Urobilinogen Normal mg/dL (Negative) Urine Leukocyte Esterase Negative /uL (Negative) Urine RBC <1 /hpf (0 - 3) Urine Microscopic WBC < 1 /HPF (0-3) Urine Squamous Epithelial Cells Few /hpf (<5) Urine Bacteria None seen /hpf (None Seen) Urine Glucose Normal mg/dL (Normal) Urine Opiates Screen Neg (NEGATIVE) Urine Fentanyl Screen Neg (NEGATIVE) Urine Barbiturates Screen Neg (NEGATIVE) Urine Phencyclidine Screen Neg (NEGATIVE) Urine Amphetamines Screen Neg (NEGATIVE) Urine Benzodiazepines Screen Neg (NEGATIVE) Urine Cocaine Screen Neg (NEGATIVE) Urine Cannabinoids Screen Neg (NEGATIVE) Red Blood Cell Morphology Normal Plasma/Serum Blood Alcohol < 3.0 mg/dL (<10) Other Laboratory Tests 06/13/25 05:38 Brief Hx & Hospital Course: 59 M with alcohol use admitted for aloc and concern of wernickie. last drink 1 month [employer]. started on thiamine and filate high dose. pt left ama Condition at Discharge: Stable Final Diagnosis/Problems List alcohol use multiple falls werncikie? anemia normocytic hypokalemia transaminitis hyponatremia Discharge Disposition: AMA Discharge Instruct/Medications Scheduled Aspirin (Aspir-81), 81 MG PO DAILY Atorvastatin Calcium (Atorvastatin Calcium), 40 MG PO HS Diphenhydramine Hcl (Benadryl Allergy), 1 CAP PO QPM, (Reported) Folic Acid (Folic Acid), 1 MG PO DAILY Levofloxacin (Levaquin), 500 MG PO DAILY Metronidazole (Flagyl), 500 MG PO TID Multiple Vitamins W/ Minerals (Multiple Vitamins/Womens), 1 TAB PO DAILY Thiamine Hcl (Vitamin B-1), 100 MG PO DAILY Discharge Statement: "Patient was advised to return to the ER or call 911 if any headaches, dizziness, shortness of breath, chest pain, abdominal pain, bleeding, fevers, or worsening of medical condition. Patient was counseled about treatment plan, medications, possible side effects, patientverbalized understanding. All questions were answered to the best of my ability. This discharge took greater then 30 minutes in planning, reviewing documentation, counseling the patient, and discussing with other team members." ASSESSMENT ASSESSMENT Assessment Date of Service: Jun 13, 2025 Billing Provider: ANT KOHLER MD Common Visit Codes: 16501-KQJ/OBS DISCH DAY >30min ANT KOHLER MD Jun 14, 2025 13:49
[2025-06-16] MEDS ORDERED: THIAMINE INJ 250 MG in D5W 5% 50 ML IV SCH (10:00)
== END 2025-06-13 16:35 | disposition left against medical advice (07) | DRG 421 ==
LOC: ER 09:30 → EDBD 09:30 → OVERFLOW 22:29
PROVIDERS: ADMIT Student in an Organized Health Care Education/Training Program; ATTEND Student in an Organized Health Care Education/Training Program
DX: E51.2 Wernicke's encephalopathy (principal); E87.1 Hypo-osmolality and hyponatremia; R29.6 Repeated falls; E87.6 Hypokalemia; Z53.29 Procedure and treatment not carried out because of patient's decision for other reasons; E78.5 Hyperlipidemia, unspecified; K76.0 Fatty (change of) liver, not elsewhere classified; E80.6 Other disorders of bilirubin metabolism; K59.01 Slow transit constipation; D64.9 Anemia, unspecified; F10.90 Alcohol use, unspecified, uncomplicated; Y90.9 Presence of alcohol in blood, level not specified; Z87.891 Personal history of nicotine dependence; Z86.73 Personal history of transient ischemic attack (TIA), and cerebral infarction without residual deficits
CPT/HCPCS: 36415; 70450; 72040; 76705; 80053; 80307; 80320; 81001; 82607; 82746; 83735; 83880; 84100; 84443; 84484; 85007; 85027; 85379; 85610; 85652; 85730; 86704; 86706; 86708; 86803; 87340; 93005; 96361; 96375; 99291; G0378; J3480; J7060

== ENCOUNTER 2025-06-20 14:05 | Emergency (ER) | payer MEDICAID ==
[~2025-06-20] VITALS: Ht 175.3 cm; Wt 65.6 kg
--- NOTE | 2025-06-20 14:54 | ED.PDOC ---
History of Present Illness HPI Comments 59-YEAR-OLD MALE PRESENTS TO THE ER WITH THE CHIEF COMPLAINT OF THE HEAD INJURY. PATIENT REPORTS ON WORKING ON A LADDER IN THE ROOM WHEN HE SLIPPED AND FELL BACK LANDING ON THE POSTERIOR REGION OF THE NECK AND HEAD TWO WEEKS AGO. PATIENT IS CURRENTLY COMPLAINING OF POSTERIOR HEAD NUMBNESS. STATES ON ALREADY BEING SEEN BY A PHYSICIAN BUT NOT FOR THE NUMBNESS. DENIES CHILLS, FEVER, N/V/D, SOB, CP. NO OTHER ASSOCIATED SYMPTOMS, MODIFIERS, RECENT INJURIES OR SICK CONTACTS PRESENT AT THIS TIME. Chief Complaint: Head Injury Time Seen by MD: 15:00 Primary Care Provider: NAYAN Reviewed Notes: Nurses Notes, Medications, Allergies Allergies: Coded Allergies: NO KNOWN ALLERGIES (Unverified , 10/04/18) Home Meds Active Scripts Gabapentin (Once-Daily) (Gabapentin) 300 Mg Tab, 300 MG PO Q6HP PRN, #60 TAB Prov:MELL STRANGE MD 06/20/25 Metronidazole (Flagyl) 500 Mg Tab, 500 MG PO TID for 7 Days, #21 TAB Prov:AKHIL KLINE MD 07/24/22 Multiple Vitamins W/ Minerals (Multiple Vitamins/Womens) Womens Tab, 1 TAB PO DAILY for 30 Days, #30 TAB Prov:AKHIL KLINE MD 07/24/22 Levofloxacin (Levaquin) 500 Mg Tab, 500 MG PO DAILY for 7 Days, #7 TAB Prov:AKHIL KLINE MD 07/24/22 Thiamine Hcl (VITAMIN B-1) 100 Mg Tb, 100 MG PO DAILY for 30 Days, #30 TAB Prov:AKHIL KLINE MD 07/24/22 Folic Acid (Folic Acid) 1 Mg Tab, 1 MG PO DAILY for 30 Days, #30 TAB Prov:AKHIL KLINE MD 07/24/22 Aspirin (Aspir-81) 81 Mg Tab, 81 MG PO DAILY, #30 TAB Prov:FREDI HERNANDEZ MD 12/19/19 Atorvastatin Calcium (ATORVASTATIN CALCIUM) 20 Mg Tab, 40 MG PO HS, #30 TAB Prov:FREDI HERNANDEZ MD 12/19/19 Reported Medications Diphenhydramine Hcl (Benadryl Allergy) 25 Mg Cap, 1 CAP PO QPM, #30 CAP 1 Refill 07/22/22 Information Source: Patient Mode of Arrival: Ambulatory Severity: Moderate Timing: Weeks Duration: Since onset Prehospital treatment: None Past Medical History PAST MEDICAL HISTORY: CVA, High Lipids Surgical History: Denies all surgeries Family History Family History: Reviewed,noncontributory to illness, Unknown Social History Smoker: Non-Smoker Alcohol: Heavy Drugs: Denies Drug Use Lives In: Home Constitutional: denies: chills, diaphoresis, fatigue, fever, malaise, sweats, weakness, others EENTM: denies: blurred vision, double vision, ear bleeding, ear discharge, ear drainage, ear pain, ear ringing, eye pain, eye redness, hearing loss, mouth pain, mouth swelling, nasal discharge, nose bleeding, nose congestion, nose pain, photophobia, tearing, throat pain, throat swelling, voice changes, others Respiratory: denies: cough, hemoptysis, orthopnea, SOB at rest, shortness of breath, SOB with excertion, stridor, wheezing, others Cardiovascular: denies: chest pain, dizzy spells, diaphoresis, Dyspnea on exertion, edema, irregular heart beat, left arm pain, lightheadedness, palpitations, PND, syncope, others Gastrointestinal: denies: abdomen distended, abdominal pain, blood streaked bowels, constipated, diarrhea, dysphagia, difficulty swallowing, hematemesis, melena, nausea, poor appetite, poor fluid intake, rectal bleeding, rectal pain, vomiting, others Genitourinary: denies: burning, dysuria, flank pain, frequency, hematuria, incontinence, penile discharge, penile sore, pain, testicle pain, testicle sw elling, urgency, others Neurological: denies: dizziness, fainting, headache, left sided numbness, left sided weakness, numbness, paresthesia, pre-existing deficit, right sided numbness, right sided weakness, seizure, speech problems, tingling, tremors, weakness, others Musculoskeletal: reports: others (POSTERIOR OF THE HEAD NUMBNESS); denies: back pain, gout, joint pain, joint swelling, muscle pain, muscle stiffness, neck pain Integumetry: denies: bruises, change in color, change in hair/nails, dryness, laceration, lesions, lumps, rash, wounds, others Allergic/Immunocompromised: denies: Difficulty Healing, Frequent Infections, Hives, Itching, others Hematologic/Lymphatic: denies: anemia, blood clots, easy bleeding, easy bruising, swollen glands, others Endocrine: denies: excessive hunger, excessive sweating, excessive thirst, excessive urination, flushing, intolerance to cold, intolerance to heat, unexplained weight gain, unexplained weight loss, others Psychiatric: denies: anxiety, bipolar disorder, depression, hopeless, panic disorder, schizophrenia, sleepless, suicidal, others All Other Systems: Reviewed and Negative Physical Exam General Appearance: No Apparent Distress, Normal HEENT: Normal ENT Inspection, Pharynx Normal, TMs Normal Neck: Full Range of Motion, Non-Tender, Normal, Normal Inspection Respiratory: Chest Non-Tender, Lungs Clear, No Accessory Muscle Use, No Respiratory Distress, Normal Breath Sounds Cardiovascular: No Edema, No JVD, No Murmur, No Gallop, Normal Peripheral Pulses, Regular Rate/Rhythm Breast Exam: Deferred Gastrointestinal: No Organomegaly, Non Tender, No Pulsatile Mass, Normal Bowel Sounds, Soft Genitalia: Deferred Pelvic: Deferred Rectal: Deferred Extremities: No calf tenderness, Normal capillary refill, Normal inspection, Normal range of motion, Non-tender, No pedal edema Musculoskeletal : Apperance: Normal Neurologic: Alert, inpatient services director II-XII nml as Tested, No Motor Deficits, Normal Affect, Normal Mood, No Sensory Deficits Cerebellar Function: Normal Reflexes: Normal Skin: Dry, Normal Color, Warm Lymphatic: No Adenopathy Was a procedure done? Was a procedure done?: No Differential Dx Considerations may include: Differential diagnosis includes but not limited to: Skull fracture, intracranial hemorrhage, cervical spine fracture, neurovascular injury and others X-Ray, Labs, Meds, VS Vital Signs Date Time Temp Pulse Resp B/P (MAP) Pulse Ox O2 Delivery O2 Flow Rate FiO2 06/20/25 14:06 98.5 104 18 124/67 96 98.5 Lab Test 06/20/25 14:31 Range/Units Urine Color Yellow Yellow Urine Clarity Clear Clear Urine pH 6.0 5.0-9.0 Urine Specific [place] 1.015 1.001-1.035 Urine Protein Negative Negative Urine Ketones Negative Negative Urine Blood Negative Negative /uL Urine Nitrite Negative Negative Urine Bilirubin Negative Negative Urine Urobilinogen Normal Negative mg/dL Urine Leukocyte Esterase Negative Negative /uL Urine RBC 2 0 - 3 /hpf Urine Microscopic WBC 4 H 0-3 /HPF Urine Squamous Epithelial Cells None seen <5 /hpf Urine Bacteria None seen None Seen /hpf Urine Glucose Normal Normal mg/dL Time of 1ST Reevaluation: 15:30 Reevaluation 1ST: Unchanged Patient Education/Counseling: Diagnosis, Treatment, Prognosis Family Education/Counseling: No Family Present SEPSIS Sepsis Screen Date sepsis recognized/suspect: Jun 20, 2025 Time Sepsis recognized/suspect: 1407 Recent Procedure: No On Antibiotic Therapy: No Respiratory Rate >20: No Heart Rate >90: No Temp<36 C (96.8 F) or >38.3 C: No SBP <90 or MAP <65 mmHG: No New Acute Mental Status Change: No Is the patient on CPAP, BIPAP,: No Physician Orders Cervical Spine 3v (06/20/25 14:43) Head Without Contrast (06/20/25 14:43) Vital Signs Date Time Temp Pulse Resp B/P (MAP) Pulse Ox O2 Delivery O2 Flow Rate FiO2 06/20/25 14:06 98.5 104 18 124/67 96 98.5 Departure 1 Departure Time of Disposition: 18:28 Impression: Primary Impression: Head injury Additional Impression: Neck sprain Disposition: 01 HOME / SELF CARE / HOMELESS Condition: Stable e-Prescriptions Gabapentin (Once-Daily) (Gabapentin) 300 Mg Tab 300 MG PO Q6HP PRN, #60 TAB Prov: MELL STRANGE MD 06/20/25 Discharged With: Self Comments CT of the head shows no acute pathology. X-rays of the cervical spine show no acute fracture. Urinalysis unremarkable. Patient improved on re-evaluation Critical Care Note Critical Care Time?: No Stability Stability form required: No Heart Score Heart Score: Heart Score Response (Comments) Value History N/A 0 EKG N/A 0 Age N/A 0 Risk Factors N/A 0 Troponin N/A 0 Total 0 I personally scribed for CAREY MORENO MD ([email or web address]) on 06/20/25 at 14:54. Electronically submitted by Gavin Barber ([email or web address]). CAREY MORENO MD Jun 20, 2025 14:54 MELL STRANGE MD Jun 20, 2025 18:30
[2025-06-20 15:34] LABS: Urine Protein, UAD Negative (Negative)
--- NOTE | 2025-06-20 15:34 | DVH ---
INDICATION: fall COMPARISON: XY CERVICAL SPINE 3V on DOS: 06/13/25 TECHNIQUE: 4 views of the cervical spine were obtained. FINDINGS: The cervical vertebral alignment is normal. The predental space is normal. The intervertebral disc spaces are well-maintained. No significant facet arthropathy is noted. No acute fracture, vertebral compression deformity or aggressive osseous lesions. The imaged lung apices are unremarkable. IMPRESSION: No acute fracture.
--- NOTE | 2025-06-20 15:53 | DVH ---
EXAM: CT HEAD WITHOUT CONTRAST INDICATION: fall TECHNIQUE: CT images of the head were obtained without administration of IV contrast. CT scans at [facility] use dose modulation, iterative reconstruction, and/or weight based dosing when appropriate to reduce radiation dose to as low as reasonably achievable. COMPARISON: CT HEAD WITHOUT CONTRAST on DOS: 06/12/25 FINDINGS: PARENCHYMA: No acute hemorrhage. There is no mass effect, midline shift, or herniation. There is pres ervation of the wells white differentiation. Mild scattered hypoattenuation along the periventricular, centrum semiovale, and deep white matter tracts, which are nonspecific however statistically most li henry represent chronic microvascular ischemic change. VENTRICLES: No hydrocephalus. EXTRA-AXIAL SPACES: No extra-axial fluid collections. OTHER: The bony structures are intact. Visualized portions of the paranasal sinuses and mastoid air cells are clear. IMPRESSION: 1. No CT evidence of an acute intracranial abnormality.
[2025-06-20 16:30] VITALS: BP 140/71; PULSE 86; RESP 22; TEMP 98.2; O2SAT 95
[2025-06-20] MEDS ORDERED: GABA300T4 PO (18:26)
== END 2025-06-20 18:33 | disposition home or self-care (01) ==
LOC: ER 14:05
DX: S13.4XXA Sprain of ligaments of cervical spine, initial encounter (principal); Z86.73 Personal history of transient ischemic attack (TIA), and cerebral infarction without residual deficits; W01.0XXA Fall on same level from slipping, tripping and stumbling without subsequent striking against object, initial encounter; Y93.89 Activity, other specified; Y92.89 Other specified places as the place of occurrence of the external cause; Y99.8 Other external cause status
CPT/HCPCS: 70450; 72040; 81001